=== PATIENT | female | born 1985 | race African-American/Black ===

== ENCOUNTER 2020-09-01 06:00 | Emergency (ER) | payer BC ==
[~2020-09-01] VITALS: Ht 165.1 cm; Wt 63.5 kg
[2020-09-01] MEDS ORDERED: AMOXIL 875 MG875 M1 PO (06:16)
[2020-09-01 06:26] LABS: ABSOLUTE EOSINOPHILS 0.1 thou/uL (0.0-0.7); ABSOLUTE LYMPHOCYTES 1.7 thou/uL (0.8-5.3); ABSOLUTE MONOCYTES 0.4 thou/uL (0.0-1.2); ABSOLUTE NEUTROPHILS 1.6 thou/uL (1.6-8.1); EOSINOPHILS 1.5 %; HEMATOCRIT 48.1 % (37.0-47.0); HEMOGLOBIN 16.1 gm/dL (12.0-15.0); MCH 35.2 pg (26.0-34.0); MCHC 33.4 g/dL (28.0-37.0); MCV 105.3 fL (80.0-100.0); MONOCYTES 10.4 %; MPV 8.7 fl. (7.2-11.1); NUCLEATED RBCS 0 /100WBC; PLATELET COUNT* 132 thou/uL (150-400); POLYS 42.1 %; RBC 4.57 mil/uL (4.20-5.00); RDW-CV 15.6 % (10.5-14.5); WBC 3.7 thou/uL (4.0-11.0)
[2020-09-01 06:35] LABS: CREATININE 0.8 mg/dL (0.6-1.3); POTASSIUM 3.1 mmol/L (3.5-5.1)
[2020-09-01 06:36] LABS: INR 0.9
[2020-09-01 06:39] LABS: URINE BILIRUBIN NEGATIVE (Negative); URINE BLOOD NEGATIVE (Negative); URINE CLARITY CLEAR; URINE COLOR YELLOW; URINE GLUCOSE-RANDOM NEGATIVE (Negative); URINE KETONES NEGATIVE (Negative); URINE LEUKOCYTES-REFLEX NEGATIVE (Negative); URINE NITRITE-REFLEX NEGATIVE (Negative); URINE PROTEIN NEGATIVE (Negative); URINE UROBILINOGEN 0.2 E.U./dl (0.2-1.0)
[2020-09-01 06:47] LABS: ALBUMIN 3.9 g/dL (3.4-5.0); TOTAL BILIRUBIN 0.3 mg/dL (<0.1-1.0); TOTAL PROTEIN 7.9 g/dL (6.4-8.2)
[2020-09-01] MEDS ORDERED: CARAFATE1 GM PO (09:15)
[2020-09-01] MEDS ORDERED: ZOFRAN ODT4 MG DISSOLVE (09:16)
[2020-09-01 09:59] VITALS: BP 113/76
--- NOTE | 2020-09-01 11:15 | EKG ---
[place] [address] ELECTROCARDIOGRAM REPORT Name: LINETTE LOERA Room: [facility]#: [id number] Admission: 09/01/20 Attend Phys: Discharge: 09/01/20 Date of : 85 Date of Service: 09/01/20 0610 Report #: [id number] THIS REPORT FOR: //name// [facility] ED Test Date: 2020-09-01 Test Time: 06:10:33 Pat Name: LINETTE LOERA Department: Room: Gender: Director Building: [facility] : 1985 Requested By: Lotus Lozoya Order Number: [id number] MD: Dennis Lantigua Measurements Intervals [place] Rate: 93 P: 57 CO: 144 QRS: 69 QRSD: 114 T: 52 QT: 382 QTc: 476 Interpretive Statements Sinus rhythm Borderline intraventricular conduction delay Borderline prolonged QT interval No previous ECG available for comparison Electronically Signed On 09-01-2020 11:15:20 [employer]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
== END 2020-09-01 10:00 | disposition still patient (30) ==
LOC: M.ERS 06:00
PROVIDERS: Emergency Medicine
DX: F10.129 Alcohol abuse with intoxication, unspecified (principal); Y90.8 Blood alcohol level of 240 mg/100 ml or more; K29.70 Gastritis, unspecified, without bleeding; Z20.822 Contact with and (suspected) exposure to COVID-19; Z79.899 Other long term (current) drug therapy

== ENCOUNTER 2021-01-19 01:20 | Emergency (ER) | payer OTHER ==
[~2021-01-19] VITALS: Ht 165.1 cm; Wt 63.5 kg
[~2021-01-19 01:20] MED LIST: AMOXIL 875 MG875 M1 PO; CARAFATE1 GM PO; ZOFRAN ODT4 MG DISSOLVE
[2021-01-19] MEDS ORDERED: HYDROXYZINE HCL25 M2 PO (01:27)
[2021-01-19] MEDS ORDERED: BLOOD PRESSURE MED (01:27)
[2021-01-19 01:42] LABS: HEMOGLOBIN 14.5 gm/dL (12.0-15.0); MPV 7.9 fl. (7.2-11.1); RDW-CV 14.5 % (10.5-14.5)
[2021-01-19 01:43] LABS: ABSOLUTE EOSINOPHILS 0.1 thou/uL (0.0-0.7); ABSOLUTE LYMPHOCYTES 1.6 thou/uL (0.8-5.3); ABSOLUTE MONOCYTES 0.4 thou/uL (0.0-1.2); BASOPHILS 0.8 %; EOSINOPHILS 1.2 %; HEMATOCRIT 41.5 % (37.0-47.0); LYMPHOCYTES 31.2 %; MCH 38.1 pg (26.0-34.0); MCV 108.9 fL (80.0-100.0); MONOCYTES 7.6 %; NUCLEATED RBCS 0 /100WBC; PLATELET COUNT* 176 thou/uL (150-400); POLYS 59.2 %; RBC 3.81 mil/uL (4.20-5.00)
[2021-01-19 01:48] LABS: CALCIUM 8.1 mg/dL (8.5-10.1); CREATININE 0.7 mg/dL (0.6-1.3); POTASSIUM 3.3 mmol/L (3.5-5.1)
[2021-01-19 01:53] LABS: ALBUMIN 3.5 g/dL (3.4-5.0); TOTAL BILIRUBIN 0.3 mg/dL (<0.1-1.0); TOTAL PROTEIN 7.2 g/dL (6.4-8.2)
[2021-01-19 03:05] LABS: URINE BILIRUBIN NEGATIVE (Negative); URINE BLOOD NEGATIVE (Negative); URINE CLARITY CLEAR; URINE COLOR STRAW; URINE GLUCOSE-RANDOM NEGATIVE (Negative); URINE KETONES NEGATIVE (Negative); URINE LEUKOCYTES-REFLEX NEGATIVE (Negative); URINE NITRITE-REFLEX NEGATIVE (Negative); URINE PROTEIN NEGATIVE (Negative); URINE SPECIFIC GRAVITY <= 1.005 (1.005-1.030); URINE UROBILINOGEN 0.2 E.U./dl (0.2-1.0)
[2021-01-19 03:11] LABS: AMP/METHAMP Negative (Negative); BARBITURATES Negative (Negative); BENZODIAZEPINES Negative (Negative); COCAINE Negative (Negative); METHADONE Negative (Negative); OPIATES Negative (Negative); PCP Negative (Negative); THC Negative (Negative)
[2021-01-19 06:25] VITALS: BP 116/80
--- NOTE | 2021-01-20 13:32 | EKG ---
[place] [address] ELECTROCARDIOGRAM REPORT Name: LINETTE LOERA Room: [facility]#: [id number] Admission: 01/19/21 Attend Phys: Discharge: 01/19/21 Date of : 85 Date of Service: 01/19/21 0123 Report #: [id number] THIS REPORT FOR: //name// [facility] ED Test Date: 2021-01-19 Test Time: 01:23:38 Pat Name: LINETTE LOERA Department: Room: Gender: [place]: [place] : 1985 Requested By: Lotus Lozoya Order Number: [id number] MD: Dennis Lantigua Measurements Intervals [place] Rate: 75 P: 61 CO: 151 QRS: 96 QRSD: 118 T: 40 QT: 417 QTc: 466 Interpretive Statements Sinus rhythm Left posterior fascicular block Compared to ECG 09/01/2020 06:10:33 Left posterior fascicular block now present Electronically Signed On 01-20-2021 13:32:04 CDT by Dennis Lantigua [email or web address] <ELECTRONICALLY SIGNED> By: Dennis Lantigua MD, [facility] 01/20/21 1332 0123 0123 Dennis Lantigua MD, [facility] /EPI
== END 2021-01-19 06:25 | disposition home or self-care (01) ==
LOC: M.ERS 01:20
PROVIDERS: Emergency Medicine
DX: F10.129 Alcohol abuse with intoxication, unspecified (principal); Y90.8 Blood alcohol level of 240 mg/100 ml or more; Z20.822 Contact with and (suspected) exposure to COVID-19; F19.10 Other psychoactive substance abuse, uncomplicated; Z79.899 Other long term (current) drug therapy